=== PATIENT | male | born 1950 | race Two or more races ===

== ENCOUNTER 2017-10-09 09:45 | Outpatient (CLI) | payer MEDICARE, MEDICAID | END 2017-10-09 23:59 | disposition home health service (06) | LOC: WOU 09:45 | PROVIDERS: ATTEND Podiatrist Foot & Ankle Surgery | DX: E11.621 Type 2 diabetes mellitus with foot ulcer (principal); L97.522 Non-pressure chronic ulcer of other part of left foot with fat layer exposed; E11.610 Type 2 diabetes mellitus with diabetic neuropathic arthropathy; E11.22 Type 2 diabetes mellitus with diabetic chronic kidney disease; N18.6 End stage renal disease; Z99.2 Dependence on renal dialysis | CPT/HCPCS: 11042; 11045; A6402 ==

== ENCOUNTER 2017-10-11 10:25 | Outpatient (CLI) | payer MEDICARE, MEDICAID | END 2017-10-11 23:59 | disposition home or self-care (01) | LOC: RAD 10:25 | PROVIDERS: ATTEND Podiatrist Foot & Ankle Surgery | DX: E11.621 Type 2 diabetes mellitus with foot ulcer (principal); L97.529 Non-pressure chronic ulcer of other part of left foot with unspecified severity; M86.8X7 Other osteomyelitis, ankle and foot; M19.072 Primary osteoarthritis, left ankle and foot; M85.872 Other specified disorders of bone density and structure, left ankle and foot; M25.475 Effusion, left foot; Z89.432 Acquired absence of left foot | CPT/HCPCS: 73630-TC ==

== ENCOUNTER 2017-10-11 11:04 | Outpatient (CLI) | payer MEDICARE, MEDICAID | END 2017-10-11 23:59 | disposition home or self-care (01) | LOC: WOU 11:04 | PROVIDERS: ATTEND Podiatrist Foot & Ankle Surgery | DX: I70.202 Unspecified atherosclerosis of native arteries of extremities, left leg (principal); I87.8 Other specified disorders of veins; T14.8XXA Other injury of unspecified body region, initial encounter; X58.XXXA Exposure to other specified factors, initial encounter; Y92.89 Other specified places as the place of occurrence of the external cause | CPT/HCPCS: 93925; 93970; A6402 ==

== ENCOUNTER 2017-10-16 10:59 | Outpatient (CLI) | payer MEDICARE, MEDICAID ==
[~2017-10-16 10:59] MED LIST: LIDOCAINE 2% 50 ML MDV IJ ONE
== END 2017-10-16 23:59 | disposition home health service (06) ==
LOC: WOU 10:59
PROVIDERS: ATTEND Podiatrist Foot & Ankle Surgery
DX: E11.621 Type 2 diabetes mellitus with foot ulcer (principal); L97.522 Non-pressure chronic ulcer of other part of left foot with fat layer exposed; E11.51 Type 2 diabetes mellitus with diabetic peripheral angiopathy without gangrene; E11.610 Type 2 diabetes mellitus with diabetic neuropathic arthropathy; E11.22 Type 2 diabetes mellitus with diabetic chronic kidney disease; N18.6 End stage renal disease; Z99.2 Dependence on renal dialysis
CPT/HCPCS: 11042; 11045; A6402; J3490

== ENCOUNTER 2017-10-23 10:31 | Outpatient (CLI) | payer MEDICARE, MEDICAID | END 2017-10-23 23:59 | disposition home health service (06) | LOC: WOU 10:31 | PROVIDERS: ATTEND Podiatrist Foot & Ankle Surgery | DX: E11.621 Type 2 diabetes mellitus with foot ulcer (principal); L97.522 Non-pressure chronic ulcer of other part of left foot with fat layer exposed; E11.51 Type 2 diabetes mellitus with diabetic peripheral angiopathy without gangrene; E11.22 Type 2 diabetes mellitus with diabetic chronic kidney disease; N18.6 End stage renal disease; Z99.2 Dependence on renal dialysis; E11.610 Type 2 diabetes mellitus with diabetic neuropathic arthropathy | CPT/HCPCS: 11042; 11045; A6402 ==

== ENCOUNTER 2017-11-06 09:42 | Outpatient (CLI) | payer MEDICARE, MEDICAID | END 2017-11-06 23:59 | disposition home health service (06) | LOC: WOU 09:42 | PROVIDERS: ATTEND Podiatrist Foot & Ankle Surgery | DX: E11.621 Type 2 diabetes mellitus with foot ulcer (principal); L97.522 Non-pressure chronic ulcer of other part of left foot with fat layer exposed; E11.610 Type 2 diabetes mellitus with diabetic neuropathic arthropathy; E11.51 Type 2 diabetes mellitus with diabetic peripheral angiopathy without gangrene; E11.22 Type 2 diabetes mellitus with diabetic chronic kidney disease; N18.6 End stage renal disease; Z99.2 Dependence on renal dialysis | CPT/HCPCS: 11042; 11045; A6402 ×2 ==

== ENCOUNTER 2017-11-13 09:47 | Outpatient (CLI) | payer MEDICARE, MEDICAID | END 2017-11-13 23:59 | disposition home health service (06) | LOC: WOU 09:47 | PROVIDERS: ATTEND Podiatrist Foot & Ankle Surgery | DX: E11.621 Type 2 diabetes mellitus with foot ulcer (principal); L97.522 Non-pressure chronic ulcer of other part of left foot with fat layer exposed; E11.610 Type 2 diabetes mellitus with diabetic neuropathic arthropathy; E11.51 Type 2 diabetes mellitus with diabetic peripheral angiopathy without gangrene; I12.0 Hypertensive chronic kidney disease with stage 5 chronic kidney disease or end stage renal disease; E11.22 Type 2 diabetes mellitus with diabetic chronic kidney disease; N18.6 End stage renal disease; Z99.2 Dependence on renal dialysis | CPT/HCPCS: 11042; 11045; A6402 ==

== ENCOUNTER 2017-11-21 13:20 | Outpatient (CLI) | payer MEDICARE, MEDICAID | END 2017-11-21 23:59 | disposition home health service (06) | LOC: VASLAB 13:20 | PROVIDERS: ATTEND Surgery Vascular Surgery | DX: I70.202 Unspecified atherosclerosis of native arteries of extremities, left leg (principal); N19 Unspecified kidney failure; Z99.2 Dependence on renal dialysis | CPT/HCPCS: A6402; G0463 ==

== ENCOUNTER 2017-12-04 09:24 | Outpatient (CLI) | payer MEDICAID, MEDICARE | END 2017-12-04 23:59 | disposition home health service (06) | LOC: WOU 09:24 | PROVIDERS: ATTEND Podiatrist Foot & Ankle Surgery | DX: E11.621 Type 2 diabetes mellitus with foot ulcer (principal); L97.522 Non-pressure chronic ulcer of other part of left foot with fat layer exposed; L97.422 Non-pressure chronic ulcer of left heel and midfoot with fat layer exposed; E11.610 Type 2 diabetes mellitus with diabetic neuropathic arthropathy; E11.51 Type 2 diabetes mellitus with diabetic peripheral angiopathy without gangrene; E11.22 Type 2 diabetes mellitus with diabetic chronic kidney disease; N18.6 End stage renal disease; Z99.2 Dependence on renal dialysis | CPT/HCPCS: 11042; 11045; A6402 ==

== ENCOUNTER 2017-12-11 09:57 | Outpatient (CLI) | payer MEDICARE | END 2017-12-11 23:59 | disposition home health service (06) | LOC: WOU 09:57 | PROVIDERS: ATTEND Podiatrist Foot & Ankle Surgery | DX: E11.621 Type 2 diabetes mellitus with foot ulcer (principal); L97.522 Non-pressure chronic ulcer of other part of left foot with fat layer exposed; L97.422 Non-pressure chronic ulcer of left heel and midfoot with fat layer exposed; E11.610 Type 2 diabetes mellitus with diabetic neuropathic arthropathy; E11.51 Type 2 diabetes mellitus with diabetic peripheral angiopathy without gangrene; E11.22 Type 2 diabetes mellitus with diabetic chronic kidney disease; N18.6 End stage renal disease; Z99.2 Dependence on renal dialysis | CPT/HCPCS: 11042; A6402 ×2 ==

== ENCOUNTER 2017-12-18 10:12 | Outpatient (CLI) | payer MEDICARE | END 2017-12-18 23:59 | disposition home or self-care (01) | LOC: WOU 10:12 | PROVIDERS: ATTEND Podiatrist Foot & Ankle Surgery | DX: E11.621 Type 2 diabetes mellitus with foot ulcer (principal); L97.522 Non-pressure chronic ulcer of other part of left foot with fat layer exposed; E11.610 Type 2 diabetes mellitus with diabetic neuropathic arthropathy; E11.51 Type 2 diabetes mellitus with diabetic peripheral angiopathy without gangrene; E11.22 Type 2 diabetes mellitus with diabetic chronic kidney disease; N18.6 End stage renal disease; Z99.2 Dependence on renal dialysis | CPT/HCPCS: 11042; A6402 ==

== ENCOUNTER 2018-03-05 10:36 | Outpatient (CLI) | payer MEDICARE, MEDICAID | END 2018-03-05 23:59 | disposition home or self-care (01) | LOC: WOU 10:36 | PROVIDERS: ATTEND Podiatrist Foot & Ankle Surgery | DX: E11.610 Type 2 diabetes mellitus with diabetic neuropathic arthropathy (principal); E11.22 Type 2 diabetes mellitus with diabetic chronic kidney disease; N18.6 End stage renal disease; Z99.2 Dependence on renal dialysis; Z86.31 Personal history of diabetic foot ulcer; Z89.422 Acquired absence of other left toe(s); L60.3 Nail dystrophy; E11.51 Type 2 diabetes mellitus with diabetic peripheral angiopathy without gangrene | CPT/HCPCS: G0463 ==

== ENCOUNTER 2019-02-14 10:49 | Emergency (ER) | payer MEDICARE, MEDICAID ==
[~2019-02-14] VITALS: Ht 165.1 cm; Wt 74.8 kg
--- NOTE | 2019-02-14 11:30 | NUR ---
PT PRESENTED TO THE ER WITH A C/O HYPERKALEMIA. PT IS AA&O X4. PT IS PERSIAN SPEAKING WITH A LITTLE KOREAN. PT HAS LUE FISTULA. PT STATED THAT HE WAS AT HD THIS AM. PT IS ON THE MONITOR AND CONTINUOUS PULSE OX.
[2019-02-14 11:44] LABS: BASOPHILS % (AUTO) 1.2 % (0.0-2.0); EOSINOPHILS % (AUTO) 2.9 % (0.0-6.0); HEMATOCRIT 38 % (39-51); HEMOGLOBIN 12.6 g/dL (13.5-17.5); LYMPHOCYTES # (AUTO) 0.6 /CMM (0.8-4.8); LYMPHOCYTES % (AUTO) 18.1 % (20.0-44.0); MEAN CORPUSCULAR HGB CONC 33 g/dl (31.0-36.0); MEAN CORPUSCULAR VOLUME 94 fL (80-96); MONOCYTES # (AUTO) 0.6 /CMM (0.1-1.30); MONOCYTES % (AUTO) 16.6 % (2.0-12.0); NEUTROPHILS % (AUTO) 61.2 % (43.0-81.0); PLATELET COUNT (AUTO) 209 /CMM (150-450); RED BLOOD CELL COUNT(AUTO) 4.01 MIL/uL (4.5-6.0); WHITE BLOOD COUNT (AUTO) 3.3 K/uL (4.3-11.0)
[2019-02-14 11:52] LABS: CALCIUM, SERUM 9.5 mg/dL (8.5-10.1); CREATININE 5.6 mg/dL (0.6-1.3); POTASSIUM 4.2 mmol/L (3.5-5.1)
[2019-02-14 11:57] LABS: ALBUMIN 3.6 g/dL (3.4-5.0); BILIRUBIN,DIRECT 0.1 mg/dL (0.0-0.2); BILIRUBIN,TOTAL 0.4 mg/dL (0.2-1.0); TOTAL PROTEIN, SERUM 8.1 g/dL (6.4-8.2)
[2019-02-14] MEDS ORDERED: ACETAMINOPHEN 325 MG TABLET ONE (12:02)
[2019-02-14] MEDS: ACETAMINOPHEN 325 MG TABLET PO ONE (12:02)
--- NOTE | 2019-02-14 12:15 | NUR ---
PAGED DR GALARZA
--- NOTE | 2019-02-14 14:05 | NUR ---
PT REC'D A RENAL LUNCH TRAY AND IS TOLERATING PO WELL.
--- NOTE | 2019-02-14 15:14 | NUR ---
AMBULANZ ARRIVED AND REPORT GIVEN TO EMT. Patient discharged to home in stable condition. Written and verbal after care instructions given. Patient verbalizes understanding of instruction. VSS.
[2019-02-14 15:15] VITALS: BP 169/87
== END 2019-02-14 15:16 | disposition home or self-care (01) ==
LOC: ER 10:58
DX: I12.0 Hypertensive chronic kidney disease with stage 5 chronic kidney disease or end stage renal disease (principal); N18.6 End stage renal disease; I77.0 Arteriovenous fistula, acquired
CPT/HCPCS: 36415; 80048-TC; 80076-TC; 85025-TC